=== PATIENT | male | born 1990 | race Caucasian/White ===

== ENCOUNTER 2022-09-02 19:00 | Emergency (ER) | payer BC ==
--- OUTSIDE RECORDS SUMMARY | 2022-09-02 19:07 | XMS REPORT | Continuity of Care Document ---
:1990 Author Organization [facility] t Address [address] [place] [address] [place] [address] Care Team Providers Name Role Phone Asked, No Pcp Primary Care Physician Unavailable GAVIOTA OWESN Attending Clinician Unavailable Emerald Petersen Attending Clinician KATIE ANNE Attending Clinician Unavailable Payers Payer Name Policy Type Policy Number Effective Date Expiration Date S noel R [id number] 2018 00:00:00 [facility] - [id number] 2019 00:00:00 OUT OF STATE Problems Condition Condition Condition Status Onset Resolution Last Treating Co mments Source Name Details Category Date Date Treatment Clinician Date Bilateral Bilateral Disease Active 2020-09 Met hodi leg pain leg pain 0-07 st 00:00: Hospita 00 l Acute Acute Disease Active 2020-09 Methodi midline midline 0-07 st low back low back 00:00: Hospit a pain pain 00 l Allergies, Adverse Reactions, Alerts Allergy Allergy Status Severity Reaction(s) Onset Inactive Treating Comm ents Source Name Type Date Date Clinician Finereno Propensi Active Shortness Of 2020-09 Methodi ne ty to Breath 0-06 st adverse 00:00: Hospita reaction 00 l s to drug PROMETHA DRUG Active Anaphylaxis Uni vers ZINE HCL INGREDI 11-11 ity of 00:00: [place] [facility] VANCOMYC DRUG Active Other-Cmnt Univ ers IN INGREDI 11-11 ity of 00:00: [place] [facility] prometha DA Active [facility] zine 02-11 Clear 00:00: [place] 00 [facility] vancomyc DA Active [facility] in 02-11 Clear 00:00: [place] 00 [facility] vancomyc vancomyc Active Memori a in in l [place] Phenerga Phenerga Active Memori a n n l [place] Social History Social Habit Start Date Stop Date Quantity Comments Source History of tobacco Occasional Method ist use tobacco smoker Hospital Alcohol intake 2021-06-19 2021-06-19 Current drinker Metho dist 00:00:00 00:00:00 of alcohol Hospital (finding) Cigarettes smoked 2021-06-19 2021-06-[address] current (pack per 00:00:00 00:00:00 Hospita l day) - Reported Cigarette 2021-06-19 2021-06-19 Taoism pack-years 00:00:00 00:00:00 Hospital Tobacco use and 2021-06-19 2021-06-19 Smokeless tobacco Me thodist exposure 00:00:00 00:00:00 non-user Hospital Sex Assigned At [birth year] M Taoism 00:00:00 00:00:00 Hospital Smoking Status Start Date Stop Date Source Social History 2021-01-17 15:58:04 Brittney posadas Medications Ordered Filled Start Stop Current Ordering Indication Dosage Frequency Signature Comments Components Source Medication Medication Date Date Medication? Clinician (SIG) Name Name No known 2020-09 No No known Metho di medications 0-[address] 08:35: s Hospita 56 l Vital Signs Vital Name Observation Time Observation Value Comments Source Weight 2021-01-17 15:56:00 Brittney Castaneda BMI Calculated 2021-01-17 15:56:00 Christina Podn Systolic (mm Hg) 2021-01-17 15:56:00 Aric Castaneda Diastolic (mm Hg) 2021-01-17 15:56:00 Shantanu Castaneda Heart Rate 2021-01-17 15:56:00 Brittney Castaneda Respitory Rate 2021-01-17 15:56:00 [facility] 2021-01-17 15:56:00 177.8 cm [facility] Procedures This patient has no known procedures. Plan of Care Planned Activity Planned Date Details Comments Source Future Scheduled 2022-08-31 COVID-19 VACCINE (#1) [facility] Test 03:59:49 [code = COVID-19 VACCINE (#1)] Future Scheduled 2022-08-31 Pneumococcal Vaccine: [facility] Test 03:59:49 Pediatrics (0 to 5 Years) and At-Risk Patients (6 to 64 Years) (1 - PCV) [code = Pneumococcal Vaccine: Pediatrics (0 to 5 Years) and At-Risk Patients (6 to 64 Years) (1 - PCV)] Future Scheduled 2022-08-31 Hepatitis C screening [facility] Test 03:59:49 (procedure) [code = 070004273] Future Scheduled 2022-08-31 INFLUENZA VACCINE Method [facility] Test 03:59:49 [code = INFLUENZA VACCINE] Encounters Start End Encounter Admission Attending Care Care Encounter Source Date/Time Date/Time Type Type Clinicians Facility Department ID 2021-06-19 2021-06-19 Outpatient ROMAN [facility] [id number] 00:00:00 00:00:00 GAVIOTA 854 Method i 2021-06-19 2021-06-19 Outpatient ROMAN [facility] [id number] 00:00:00 00:00:00 GAVIOTA 803 Method i 2021-01-17 2021-01-18 Outpatient nullFlavo [facility] Urgent [id number] Memoria 16:30:00 04:59:59 r Care 01 l [facility] 2021-01-17 2021-01-17 Outpatient TEOFILO PetersenMG [facility] [id number] 11:30:00 23:59:59 Emerald Barillas 01 2021-01-17 2021-01-17 Outpatient MHIE [facility]IE [id number] Memoria 11:30:00 11:30:00 01 l [place] 2020-07-17 2020-07-17 Outpatient Phan ANNE [facility] [id number] Univers 17:20:00 17:20:00 KATIE crowder [facility] Results This patient has no known results.
[2022-09-02] MEDS ORDERED: ONDANSETRON 4 MG/2 ML VIAL ONE ×2 (20:05→22:26)
[2022-09-02] MEDS ORDERED: NA CHLORIDE 0.9% 1,000 ML ONE (20:05)
[2022-09-02] MEDS ORDERED: MORPHINE 4 MG/ML SYR ONE ×2 (20:05→22:26)
[2022-09-02 20:08] LABS: Absolute Lymphocytes (CBC) 0.6 K/uL (0.7-4.9); Lymphocytes % 7.3 % (15.3-44.8); MCV 90.7 fL (80-100); MPV 7.4 fL (7.6-11.3); RBC Red Blood Cell Count 4.63 M/uL (4.33-5.43)
[2022-09-02] MEDS ORDERED: PANTOPRAZOLE 40 MG INJ ONE (20:14)
[2022-09-02 20:23] LABS: Albumin 4.1 g/dL (3.4-5.0); Bilirubin Total 0.8 mg/dL (0.2-1.0); Potassium 3.9 mmol/L (3.5-5.1); Protein, Total 7.6 g/dL (6.4-8.2)
[2022-09-02] MEDS ORDERED: DICYCLOMINE HCL 20 MG/2 ML AMP IM ONE (20:31)
[2022-09-02 20:37] LABS: SARS-COV-2 RT PCR NEGATIVE (NEGATIVE)
[2022-09-02 20:42] LABS: Urine Blood Negative (Negative); Urine Glucose Negative (Negative); Urine Protein Negative (Negative); Urine Specific Gravity 1.015 (1.005-1.030); Urine pH 5.5 (5.0-7.0)
[2022-09-02 20:49] LABS: Urine Bacteria None Seen /HPF (<20); Urine Crystals Unidentified Few /HPF (None Seen); Urine Mucus Slight /HPF (None Seen); Urine RBC <5 /HPF (None Seen)
[2022-09-02 22:18] LABS: C.diff Antigen/Toxin Ag neg : Tox neg (NEG : NEG)
--- NOTE | 2022-09-02 22:21 | RAD REPORT ---
EXAM DESCRIPTION: CTAbdomen Pelvis W Contrast - 09/02/2022 10:11 pm CLINICAL HISTORY: Abdominal pain. abdominal pain COMPARISON: No comparisons TECHNIQUE: Biphasic CT imaging of the abdomen and pelvis was performed with 100 ml non-ionic IV cont rast. All CT scans are performed using dose optimization technique as appropriate and may include automated exposure control or mA/KV adjustment according to patient size. FINDINGS: The lung bases are clear. The liver, spleen, pancreas, adrenal glands and kidneys are within normal limits. No bowel obstruction, free air, free fluid or abscess. The appendix is normal. No evidence of signi ficant lymphadenopathy. No suspicious bony findings. IMPRESSION: No acute intra-abdominal or pelvic finding.
--- NOTE | 2022-09-03 00:06 | ER ---
Nurse's Notes [facility] Name: Kurtis Mora Age: 32 yrs Sex: Male : 1990 Arrival Date: 09/02/2022 Time: 19:06 Bed 14 Private MD: Diagnosis: Nausea with vomiting, unspecified;Diarrhea, unspecified Presentation: 09/02 19:07 Chief complaint: Patient states: ABD PAIN RADIATES TO RIGHT SIDE. VOMITED BLOOD X1 jj7 TODAY AND PASSING DARK BLACK COFFEE STOOL STARTED THIS MORNING. Coronavirus screen: At this time, the client does not indicate any symptoms associated with coronavirus-19. Ebola Screen: No symptoms or risks identified at this time. Initial Sepsis Screen: Does the patient meet any 2 criteria? HR > 90 bpm. No. Patient's initial sepsis screen is negative. Does the patient have a suspected source of infection? No. Patient's initial sepsis screen is negative. Risk Assessment: Do you want to hurt yourself or someone else? Patient reports no desire to harm self or others. Onset of symptoms was September 02, 2022. 19:07 Method Of Arrival: Ambulatory [facility] 19:07 Acuity: KOBE 3 jj7 Triage Assessment: 19:17 General: Appears in no apparent distress. comfortable, Behavior is calm, cooperative, jj7 appropriate for age. Pain: Complains of pain in abdomen. GI: Reports lower abdominal pain, upper abdominal pain, bloody stool, nausea, vomiting. Historical: - Allergies: 19:16 Vancomycin; jj7 19:16 Phenergan; jj7 - PMHx: 19:17 None; jj7 - PSHx: 19:17 BACK; RIGHT ARM; ULNAR NERVE REMOVED; RIGHT RIB REMOVAL; jj7 - Social history:: Smoking status: Reported history of juuling and/or vaping. Patient uses Patient/guardian denies using alcohol, street drugs. Screenin:10 [facility] ED Fall Risk Assessment (Adult) History of falling in the last 3 months, ke1 including since admission No falls in past 3 months (0 pts) Confusion or Disorientation No (0 pts) Intoxicated or Sedated No (0 pts) Impaired Gait No (0 pts) Mobility Assist Device Used No (0 pt) Altered Elimination No (0 pt) Score/Fall Risk Level 0 - 2 = Low Risk. Abuse screen: Denies threats or abuse. Nutritional screening: No deficits noted. Tuberculosis screening: No symptoms or risk factors identified. Fall Risk Assessment: 20:10 GI: Bowel sounds present X 4 quads. ke1 21:36 Reassessment: Patient and/or family updated on plan of care and expected duration. Pain ke1 level reassessed. Patient is alert, oriented x 3, equal unlabored respirations, skin warm/dry/pink. Patient states feeling better. Patient states symptoms have improved. 22:34 Pain: Complains of pain in abdomen Pain currently is 7 out of 10 on a pain scale. GI: ke1 Reports nausea. 23:45 GI: Reports nausea. ke1 09/03 00:16 Reassessment: Patient denies pain at this time. Patient states feeling better. Patient ke1 states symptoms have improved. Vital Signs: 09/02 19:07 BP 133 / 89; Pulse 114; Resp 20; Temp 98.31; Pulse Ox 100% ; Weight 84.82 kg; Height 5 [facility] ft. 10 in. (177.80 cm); Pain 8/10; 20:09 BP 119 / 86; Pulse 91; Resp 17; Pain 7/10; ke1 21:00 Pain 2/10; ke1 21:34 BP 125 / 75; Pulse 88; Resp 19; Temp 98.1; Pulse Ox 98% on R/A; Pain 2/10; ke1 23:00 Pain 1/10; ke1 23:22 BP 117 / 74; Pulse 94; Resp 19; Temp 98; Pulse Ox 97% on R/A; Pain 0/10; ke1 09/03 00:16 BP 115 / 70; Pulse 89; Resp 17; Temp 98; Pulse Ox 100% on R/A; Pain 0/10; ke1 09/02 19:07 Body Mass Index 26.83 (84.82 kg, 177.80 cm) [facility] ED Course: 09/02 19:06 Patient arrived in ED. rg4 19:07 Ramon Abraham PA is PHCP. cp 19:07 Catia Strong MD is Attending Physician. cp 19:16 Triage completed. j7 19:17 Arm band placed on right wrist. j7 19:27 Jonathan Chang, DEJAH is Primary Nurse. ke1 20:00 Inserted saline lock: 20 gauge in right forearm, using aseptic technique. ke1 20:00 COVID-19/FLU A+B Sent. ke1 20:00 Lactate w/ 2H reflex if indic. Sent. ke1 20:00 CBC with Diff Sent. ke1 20:00 CMP Sent. ke1 20:00 Lipase Sent. ke1 20:10 Bed in low position. Call light in reach. ke1 22:03 CDIFF Sent. ke1 22:03 Ova And Parasites Sent. ke1 22:03 Rotavirus Antigen Sent. ke1 22:03 Stool Culture Sent. ke1 22:13 CT Abd/Pelvis - PO and IV Contrast: IV and oral contrast In Process Unspecified. EDMS 23:52 US Abdomen Limited: gallbladder In Process Unspecified. EDMS 09/03 00:16 No provider procedures requiring assistance completed. IV discontinued. ke1 Administered Medications: 09/02 20:09 Drug: NS 0.9% 1000 ml Route: IV; Rate: 1 bolus; Site: right forearm; ke1 20:09 Drug: Zofran (Ondansetron) 4 mg Route: IVP; Site: right forearm; ke1 20:32 Follow up: Response: Nausea is decreased ke1 20:09 Drug: morphine 4 mg Route: IVP; Infused Over: 4 mins; Site: right forearm; ke1 20:32 Follow up: Response: Pain is unchanged, physician notified ke1 20:15 Drug: ProTONIX (pantoprazole) 40 mg Route: IVP; Site: right forearm; ke1 20:32 Follow up: Response: No adverse reaction ke1 20:33 Drug: Bentyl (dicyclomine) 20 mg Route: IM; Site: right deltoid; ke1 21:00 Follow up: Pain 2/10 Adult; Response: Pain is decreased ke1 22:41 Drug: Zofran (Ondansetron) 4 mg Route: IVP; Site: right forearm; ke1 23:00 Follow up: Response: Nausea is decreased ke1 22:42 Drug: morphine 4 mg Route: IVP; Infused Over: 4 mins; Site: right forearm; ke1 23:00 Follow up: Pain 1/10 Adult; Response: Pain is decreased ke1 23:58 Drug: Reglan (metoCLOPramide) 10 mg Route: IVP; Site: right forearm; ke1 23:58 Drug: Benadryl (diphenhydrAMINE) 12.5 mg Route: IVP; Site: right forearm; ke1 Medication: 09/03 00:17 VIS not applicable for this client. ke1 Outcome: 00:05 Discharge ordered by . liv 00:16 Discharged to home ambulatory. ke1 00:16 Condition: good 00:16 Discharge instructions given to patient. 00:17 Patient left the ED. ke1 Signatures: Dispatcher [employer] EDMS Ramon Abraham PA PA cp Garcia, Rubi rg4 Jonathan Chang RN RN ke1 Thomas Brar RN RN jj7 Corrections: (The following items were deleted from the chart) 09/02 19:19 19:16 Allergies: No Known Allergies; jj7 jj7
--- NOTE | 2022-09-03 00:06 | EDPHYS ---
Physician Documentation [facility] Name: Kurtis Mora Age: 32 yrs Sex: Male : 1990 Arrival Date: 09/02/2022 Time: 19:06 Bed 14 Private MD: ED Physician Catia Strong HPI: 09/02 19:40 This 32 yrs old Male presents to ER via Ambulatory with complaints of Abdominal Pain, cp Bloody Stools. 19:40 The patient presents with abdominal pain that is diffuse, pain worse right side of cp abdomen. Onset: The symptoms/episode began/occurred this morning. Associated signs and symptoms: Pertinent positives: anorexia, diarrhea, vomiting, dark, black colored stools, and vomiting small amount red blood today, Pertinent negatives: chest pain, constipation, fever, headache. The symptoms are described as constant. Severity of pain: in the emergency department the pain is unchanged despite home interventions. Historical: - Allergies: 19:16 Vancomycin; jj7 19:16 Phenergan; jj7 - PMHx: 19:17 None; jj7 - PSHx: 19:17 BACK; RIGHT ARM; ULNAR NERVE REMOVED; RIGHT RIB REMOVAL; jj7 - Social history:: Smoking status: Reported history of juuling and/or vaping. Patient uses Patient/guardian denies using alcohol, street drugs. ROS: 19:45 Constitutional: Positive for poor PO intake, Negative for fever. cp 19:45 Eyes: Negative for injury, pain, redness, and discharge. cp 19:45 ENT: Negative for drainage from ear(s), ear pain, sore throat, difficulty swallowing, difficulty handling secretions. 19:45 Cardiovascular: Negative for chest pain, edema, palpitations. 19:45 Respiratory: Negative for cough, shortness of breath, wheezing. 19:45 Abdomen/GI: Positive for abdominal pain, nausea and vomiting, diarrhea, anorexia, hematemesis, black/tarry stool. 19:45 Neuro: Negative for altered mental status, dizziness, headache, weakness. 19:45 All other systems are negative. Exam: 19:50 Constitutional: The patient appears in no acute distress, alert, awake, cp non-diaphoretic, non-toxic, well developed, well nourished, uncomfortable. 19:50 Head/Face: Normocephalic, atraumatic. cp 19:50 Eyes: Periorbital structures: appear normal, Conjunctiva: normal, no exudate, no injection, Sclera: no appreciated abnormality, Lids and lashes: appear normal, bilaterally. 19:50 ENT: External ear(s): are unremarkable, Nose: is normal, Mouth: Lips: moist, Oral mucosa: pink and intact, moist, Posterior pharynx: Airway: no evidence of obstruction, patent. 19:50 Chest/axilla: Inspection: normal, Palpation: is normal, no crepitus, no tenderness. 19:50 Cardiovascular: Rate: tachycardic, Rhythm: regular. 19:50 Respiratory: the patient does not display signs of respiratory distress, Respirations: normal, no use of accessory muscles, no retractions, labored breathing, is not present, Breath sounds: are clear throughout, no decreased breath sounds, no stridor, no wheezing. 19:50 Abdomen/GI: Inspection: abdomen appears normal, Bowel sounds: active, all quadrants, Palpation: soft, in all quadrants, moderate abdominal tenderness, in the right upper quadrant and right lower quadrant, rebound tenderness, is not appreciated, voluntary guarding, is elicited in the right lower quadrant. 19:50 Back: CVA tenderness, is absent. 19:50 Skin: cellulitis, is not appreciated, no rash present. 19:50 Neuro: Orientation: to person, place \T\ time. Mentation: is normal. 21:17 : Rectal exam: Stool: black, Guaiac testing: results were negative for occult blood. cp Vital Signs: 19:07 BP 133 / 89; Pulse 114; Resp 20; Temp 98.31; Pulse Ox 100% ; Weight 84.82 kg; Height 5 jj7 ft. 10 in. (177.80 cm); Pain 8/10; 20:09 BP 119 / 86; Pulse 91; Resp 17; Pain 7/10; ke1 21:00 Pain 2/10; ke1 21:34 BP 125 / 75; Pulse 88; Resp 19; Temp 98.1; Pulse Ox 98% on R/A; Pain 2/10; ke1 23:00 Pain 1/10; ke1 23:22 BP 117 / 74; Pulse 94; Resp 19; Temp 98; Pulse Ox 97% on R/A; Pain 0/10; ke1 12/21 00:16 BP 115 / 70; Pulse 89; Resp 17; Temp 98; Pulse Ox 100% on R/A; Pain 0/10; ke1 09/02 19:07 Body Mass Index 26.83 (84.82 kg, 177.80 cm) jj7 MDM: 09/02 19:24 Patient medically screened. 09/03 00:05 Data reviewed: vital signs, nurses notes, lab test result(s), radiologic studies, CT cp scan, ultrasound. 00:05 Counseling: I had a detailed discussion with the patient and/or guardian regarding: the cp historical points, exam findings, and any diagnostic results supporting the discharge/admit diagnosis, lab results, radiology results, to return to the emergency department if symptoms worsen or persist or if there are any questions or concerns that arise at home. Response to treatment: the patient's symptoms have markedly improved after treatment, patient is well hydrated. ED course: VSS. Nausea and pain markedly improved, vomiting resolved and patient tolerating po fluids. Discussed stool negative for blood and black colored stool due to recent use of Pepto Bismol. Will discharge to home for continued monitoring. 09/02 19:34 Order name: CBC with Diff; Complete Time: 21:11 09/02 21:12 Interpretation: Normal except: MPV 7.4; DEEPAK% 83.9; LYM% 7.3; LYMA 0.6. 09/02 19:34 Order name: CMP; Complete Time: 21:11 09/02 21:12 Interpretation: AST 63; ALT 124. 09/02 19:34 Order name: Lipase; Complete Time: 21:11 09/02 19:34 Order name: Urine Microscopic Only; Complete Time: 21:11 09/02 23:40 Interpretation: Reviewed. 09/02 19:34 Order name: Ova And Parasites cp 09/02 19:34 Order name: Rotavirus Antigen; Complete Time: 22:39 cp 09/02 22:39 Interpretation: Reviewed. 09/02 19:34 Order name: Stool Culture; Complete Time: 06:52 09/02 19:34 Order name: CDIFF; Complete Time: 22:39 09/02 22:40 Interpretation: Reviewed. 09/02 19:34 Order name: CT Abd/Pelvis - PO and IV Contrast: IV and oral contrast; Complete Time: cp 22:39 09/02 22:40 Interpretation: Report reviewed. cp 09/02 19:35 Order name: Lactate w/ 2H reflex if indic.; Complete Time: 21:11 cp 09/02 19:35 Order name: COVID-19/FLU A+B; Complete Time: 21:11 cp 09/02 20:42 Order name: Urine Dipstick-Ancillary; Complete Time: 21:11 EDMS 09/02 22:41 Order name: US Abdomen Limited: gallbladder; Complete Time: 06:52 cp 09/02 19:34 Order name: IV Saline Lock; Complete Time: 20:00 cp 09/02 19:34 Order name: Labs collected and sent; Complete Time: 20:00 cp 09/02 19:34 Order name: Urine Dipstick-Ancillary (obtain specimen); Complete Time: 22:03 cp 09/02 23:48 Order name: PO challenge; Complete Time: 23:59 cp Administered Medications: 09/02 20:09 Drug: NS 0.9% 1000 ml Route: IV; Rate: 1 bolus; Site: right forearm; ke1 20:09 Drug: Zofran (Ondansetron) 4 mg Route: IVP; Site: right forearm; ke1 20:32 Follow up: Response: Nausea is decreased ke1 20:09 Drug: morphine 4 mg Route: IVP; Infused Over: 4 mins; Site: right forearm; ke1 20:32 Follow up: Response: Pain is unchanged, physician notified ke1 20:15 Drug: ProTONIX (pantoprazole) 40 mg Route: IVP; Site: right forearm; ke1 20:32 Follow up: Response: No adverse reaction ke1 20:33 Drug: Bentyl (dicyclomine) 20 mg Route: IM; Site: right deltoid; ke1 21:00 Follow up: Pain 2/10 Adult; Response: Pain is decreased ke1 22:41 Drug: Zofran (Ondansetron) 4 mg Route: IVP; Site: right forearm; ke1 23:00 Follow up: Response: Nausea is decreased ke1 22:42 Drug: morphine 4 mg Route: IVP; Infused Over: 4 mins; Site: right forearm; ke1 23:00 Follow up: Pain 1/10 Adult; Response: Pain is decreased ke1 23:58 Drug: Reglan (metoCLOPramide) 10 mg Route: IVP; Site: right forearm; ke1 23:58 Drug: Benadryl (diphenhydrAMINE) 12.5 mg Route: IVP; Site: right forearm; ke1 Disposition Summary: 09/03/22 00:05 Discharge Ordered Location: Home cp Problem: new cp Symptoms: have improved cp Condition: Stable cp Diagnosis - Nausea with vomiting, unspecified cp - Diarrhea, unspecified cp Followup: cp - With: Private Physician - When: 2 - 3 days - Reason: Worsening of condition Discharge Instructions: - Discharge Summary Sheet cp - Food Choices to Help Relieve Diarrhea, Adult cp - Diarrhea, Adult cp - Nausea and Vomiting, Adult cp Forms: - Medication Reconciliation Form cp - Thank You Letter cp - Antibiotic Education cp - Prescription Opioid Use cp Prescriptions: - Pepcid 20 mg Oral Tablet - take 1 tablet by ORAL route every 12 hours for 10 days; 20 tablet; Refills: 0, cp Product Selection Permitted - Zofran 4 mg Oral Tablet - take 1 tablet by ORAL route every 12 hours As needed; 20 tablet; Refills: 0, cp Product Selection Permitted - dicyclomine 20 mg Oral Tablet - take 1 tablet by ORAL route 4 times per day; 30 tablet; Refills: 0, Product cp Selection Permitted Addendum: 09/04/2022 06:52 STAFF ATTESTATION STATEMENT: I was immediately available onsite in the emergency s d2 department for consultation in the care of this patient. I did not see or examine this patient. Catia Strong MD. Signatures: Dispatcher [employer] EDMS Ramon Abraham PA PA cp Ebrottie, Kouassi, RN RN ke1 Catia Strong MD MD sd2 Thomas Brar RN RN jj7 Corrections: (The following items were deleted from the chart) 09/02 19:19 19:16 Allergies: No Known Allergies; jj7 jj7
[2022-09-03 01:06] VITALS: TEMP 98
[2022-09-03 01:08] VITALS: BP 115/70; O2SAT 100
--- NOTE | 2022-09-03 12:01 | RAD REPORT ---
EXAM DESCRIPTION: Real-time transabdominal imaging of the right upper quadrant CLINICAL HISTORY: 32 years Male, ABD PAIN TECHNIQUE: Real-time transabdominal imaging of the right upper quadrant was performed. COMPARISON: None. FINDINGS: LIVER: Visualized portions of the liver is unremarkable without focal lesions. GALLBLADDER: No biliary sludge or stones. No abnormal wall thickening or pericholecystic fluid. S onographic Pinedo sign: Negative. CBD/BILE DUCT: The common bile duct is not dilated, measuring 4 mm. No intra- or extrahepatic duct al dilatation. PANCREAS: Nonvisualized secondary to obscuration by overlying bowel gas. OTHER: Noncontributory. IMPRESSION: 1. No cholelithiasis or evidence for cholecystitis. 2. Suboptimal visualization of pancreas. Electronically signed by: Hollis Jackson MD 09/03/2022 12:11 AM NARROW [employer]ER Due to temporary technical issues with the PACS/Fluency reporting system, reports are being signed by the in house radiologists without review as a courtesy to insure prompt reporting. The interpreting radiologist is fully responsible for the content of the report.
== END 2022-09-03 00:17 | disposition home or self-care (01) ==
LOC: ER 19:00
DX: R19.7 Diarrhea, unspecified (principal); R11.2 Nausea with vomiting, unspecified; Z20.822 Contact with and (suspected) exposure to COVID-19; Z88.1 Allergy status to other antibiotic agents; Z88.8 Allergy status to other drugs, medicaments and biological substances
CPT/HCPCS: 87045; 85025; 36415; 87177; 87046; 83605; 87209; 87324; 83690; 80053; 0240U; 87425; 74177; 76705; Q9967; J0500; C9113; J7030; J2405 ×2; 81003; 81015; 96372; 96374; 96375; 99284